=== PATIENT | female | born 1955 | race Caucasian/White ===

== ENCOUNTER 2022-07-18 09:33 | Emergency (ER) | payer MEDICARE, OTHER, SELFPAY ==
[2022-07-18 09:41] VITALS: BP 160/75; PULSE 100; RESP 20; TEMP 36.6; O2SAT 99; BMI 37.2
--- NOTE | 2022-07-18 09:57 | ED_ITS ---
History of Present Illness General Chief Complaint: Epistaxis <PALMER Nieto - Last Filed: 07/18/22 10:38> Stated Complaint: bloody nose <PALMER Nieto - Last Filed: 07/18/22 10:38> Time Seen by Provider: 07/18/22 09:57 <PALMER Nieto - Last Filed: 07/18/22 10:38> History of Present Illness HPI Narrative: Patient complains of nose bleed that started spontaneously as she was driving and was coming out both her nose and her mouth which was very alarming so she drove to the hospital where she was instructed to apply pressure and the nose bleed has stopped She denies any bruising, no bleeding from any other site no injury no dizziness no fainting or feeling faint no rash <PALMER Nieto Last Filed: 07/18/22 10:38> Related Data Home Medications: Previous Rx's Medication Instructions Recorded oxymetazoline 0.05 % nasal spray 3 spray intranasal Q12H PRN 07/18/22 (12 Hour Nasal Relief [place]) Bleeding or congestion 3 days #15 mL <PALMER Nieto - Last Filed: 07/18/22 10:38> Allergies/Adverse Reactions: Allergies Allergy/AdvReac Type Severity Reaction Status Date / Time No Known Allergies Allergy Verified 07/18/22 09:40 <PALMER Nieto - Last Filed: 07/18/22 10:38> [facility] Past Medical History Source: nursing notes reviewed <PALMER Nieto - Last Filed: 07/18/22 10:38> Medical History: Medical History (Updated 07/19/22 @ 00:01 by Jahaira Ayoub) Hypertension <PALMER Nieto - Last Filed: 07/18/22 10:38> Surgical History: Surgical History (Updated 07/18/22 @ 10:07 by Reema Sahu RN) H/O: hysterectomy History of bilateral knee replacement <PALMER Nieto Last Filed: 07/18/22 10:38> Social History Social History: Social History Advance Directives: No <PALMER Nieto Last Filed: 07/18/22 10:38> Physical Exam Vital Signs: Vital Signs: Last Vital Signs Temp 98.1 F 07/18/22 10:08 Pulse 77 07/18/22 10:08 Resp 18 07/18/22 10:08 BP 132/56 L 07/18/22 10:08 Pulse Ox 97 07/18/22 10:08 O2 Del Method 07/18/22 10:08 BMI result Body Mass Index 37.2 <PALMER Nieto - Last Filed: 07/18/22 10:38> Vital Signs: Last Vital Signs Temp 98.1 F 07/18/22 10:08 Pulse 77 07/18/22 10:08 Resp 18 07/18/22 10:08 BP 132/56 L 07/18/22 10:08 Pulse Ox 97 07/18/22 10:08 O2 Del Method 07/18/22 10:08 BMI result Body Mass Index 37.2 <Fabrice Marroquin MD - Last Filed: 07/22/22 11:51> exam done after pt applied pressure for 15 minutes General appearance comfortable no distress no respiratory distress Eyes no pallor The nose is normal, there is no active bleeding now There is some scant clotted blood in the left nostril but no active bleeding, nose is otherwise normal no signs of trauma The pharynx is clear with no evidence of bleeding dripping into the pharynx Neck is supple Chest clear to auscultation no respiratory distress Extremities full range of motion x4 Skin no rash no petechiae no purpura Neuro no focal deficits <PALMER Nieto - Last Filed: 07/18/22 10:38> Course Course Course Narrative: patient arrived at ER with nosebleed that had been going on for 15 or 20 minutes and was advised to apply pressure which did stop the bleeding and by the time I saw the patient there was no nose bleed Afrin was sprayed in both nostrils to hopefully prevent any further bleeding and after observation for 20 minutes with no further bleeding the patient is discharged <PALMER Nieto - Last Filed: 07/18/22 10:38> Medications Administered Discontinued Medications Generic Name Dose Route Start Last Admin Trade Name Freq PRN Reason Stop Dose Admin Oxymetazoline HCl 2 spray 07/18/22 10:18 07/18/22 10:34 Oxymetazoline Hcl 0.05 % Nasal 15 Ml [place] NOSTRIL-B 07/18/22 10:19 2 spray ONCE ONE Administration <PALMER Nieto - Last Filed: 07/18/22 10:38> Medications Administered Discontinued Medications Generic Name Dose Route Start Last Admin Trade Name Domingoq PRN Reason Stop Dose Admin Oxymetazoline HCl 2 spray 07/18/22 10:18 07/18/22 10:34 Oxymetazoline Hcl 0.05 % Nasal 15 Ml [place] NOSTRIL-B 07/18/22 10:19 2 spray ONCE ONE Administration <Fabrice Marroquin MD - Last Filed: 07/22/22 11:51> Medical Decision Making Attestation Attending Attestation: I reviewed [employer]/PA/Resident note, assessment and plan. I agree with the documentation, assessment and plan unless otherwise stated. <Fabrice Marroquin MD - Last Filed: 07/22/22 11:51> Discharge Plan Discharge Clinical Impression: Epistaxis <PALMER Nieto - Last Filed: 07/18/22 10:38> Patient Disposition: Home, Self-Care <PALMER Nieto - Last Filed: 07/18/22 10:38> Additional Instructions: most nose bleeds will stop if you apply pressure for 10 minutes as we showed you afrin spray constricts blood vessels and helps control bleeding return any time for uncontrolled bleeding any worse condition or concerns <PALMER Nieto - Last Filed: 07/18/22 10:38> Prescriptions: New oxymetazoline [12 Hour Nasal Relief [place]] 0.05 % spray,non-aerosol 3 spray intranasal Q12H PRN (Reason: Bleeding or congestion) 3 Days Qty: 15 0RF <PALMER Nieto - Last Filed: 07/18/22 10:38> Interventions: ED Discharge Assessment Last Done: 07/18/22 10:36 <PALMER Nieto - Last Filed: 07/18/22 10:38> Discharge Date/Time: 07/18/22 10:37 <PALMER Nieto - Last Filed: 07/18/22 10:38>
[2022-07-18 10:08] VITALS: BP 132/56; PULSE 77; RESP 18; TEMP 36.7; O2SAT 97
--- NOTE | 2022-07-18 10:10 | PC.NURSE ---
patient a&ox3, vss, pt unknown cause of epistaxis, denies pain/discomfort, no bleeding noted at this time, call vanegas within reach, will continue to monitor
--- OUTSIDE RECORDS SUMMARY | 2022-07-18 10:17 | XMS_ITS | Continuity of Care Document ---
:1955 Author Organization [facility] Address [address] [place] [address]- Care Team Providers Name Role Phone Thanh Ivey Primary Care Physician [id number] Date(s[facility] 12/16/[facility] - 12/23/21 [facility] [address], [place] [address] Attending Physician: Sriram Vanegas DO Referring Physician: Thanh Ivey Allergies, Adverse Reactions, Alerts No Known Allergies Medications albuterol CFC free 90 mcg/inh inhalation aerosol 2 puffs, Inhalation, Every 4 hours, PRN for wheezing, # 9 Gm, 0 Refills, Maintenance, 07/20/14 16:43:35, Aerosol, 2 puffs Inhalation Every 4 hours,PRN:for wheezing Start Date: 07/20/14 Status: OrderedColace sodium 100 mg oral capsule 1 capsule = 100 mg, By Mouth, 2 times a day, PRN for constipation, # 60 capsule, 0 Refills, Maintenance, Capsule Start Date: 01/15/12 Stop Date: 02/14/12 Status: Orderedferrous sulfate 325 mg oral tablet 1 tablet = 325 mg, By Mouth, 2 times a day, # 60 tablet, 0 Refills, Maintenance, Tablet Start Date: 01/15/12 Stop Date: 02/14/12 Status: OrderedFlonase 50 mcg/inh nasal spray 1 sprays, Nares, Both, 2 times a day, # 1 each, 0 Refills, Maintenance, 09/14/15 13:51:31, [place], 1 sprays Nares, Both 2 times a day,x14 days Start Date: 09/14/15 Stop Date: 09/28/15 Status: Orderedibuprofen 600 mg oral tablet 1 tablet = 600 mg, By Mouth, 4 times a day, PRN Pain , Moderate, # 56 tablet, 0 Refills, Maintenance Start Date: 01/15/12 Stop Date: 01/29/12 Status: Orderedoxycodone 5 mg oral tablet 1 tablet = 5 mg, By Mouth, Every 3 hours, PRN for pain, may take 1-2 tablets, # 24 tablet, 0 Refills, Maintenance, Tablet Start Date: 01/15/12 Status: OrderedZithromax Z-Louis 250 mg oral tablet See Instructions, as directed on package labeling, # 6 tablet, 0 Refills, Soft Stop, 07/20/14 16:42:13, Tablet, as directed on package labeling Start Date: 07/20/14 Status: Ordered Results Orders for Microbiology Reports Name Date Urine Culture (URINE CULTURE) 12/16/21 Microbiology Reports TEST:Urine Culture STATUS:Auth (Verified) BODY SITE: SOURCE:URINE COLLECTED DATE/TIME:12/16/21 9:48 AMUrine Culture SPECIMEN DESCRIPTION : URINE SPECIAL REQUESTS : NONE CULTURE : NO GROWTH REPORT STATUS : FINAL 12/17/2021 Vital Signs Most recent to oldest [Reference Range]: 1 Height 160.00 cm (12/16/21 9:28 AM) Oxygen Saturation [94-100 %] 97 % (12/16/21 9:28 AM) Pulse Rate [55-90 bpm] 82 bpm (12/16/21 9:28 AM) Blood Pressure [90-138/55-84 mm Hg] 130/56 mm Hg (12/16/21 9:28 AM) Respiratory Rate [16-30 br/min] 18 br/min (12/16/21 9:28 AM) Temperature [96.8-100.4 DegF] 98.1 DegF (12/16/21 9:28 AM) Mode of Delivery (Oxygen) Room air (12/16/21 9:28 AM) Blood pressure sites Arm, right (12/16/21 9:28 AM) Temperature Route Temporal (12/16/21 9:28 AM) Social History Social History Type Response Smoking Status Light tobacco smoker entered on: 09/14/15 Sex
--- OUTSIDE RECORDS SUMMARY | 2022-07-18 10:17 | XMS_ITS | Continuity of Care Document ---
:1955 Author Organization [facility] Address [address] [place] [address]- Care Team Providers Name Role Phone Zion CABRALES, Houston Gonzalez Primary Care Physician Encounter 05/07/21 - 05/25/21 [facility] [address] [place] [id number] Discharge Disposition: GOALS MET Allergies, Adverse Reactions, Alerts Substance Reaction Severity Status NKA Active Medications albuterol CFC free 90 mcg/inh inhalation [...] 1 each, 0 Refills, Maintenance, 09/14/15 13:51:31, [place], 1 sprays Nares, Both 2 times a [...] package labeling Start Date: 07/20/14 Status: Ordered Social History Social History Type Response Smoking Status Light tobacco smoker entered on: 09/14/15 Sex
--- OUTSIDE RECORDS SUMMARY | 2022-07-18 10:17 | XMS_ITS | Continuity of Care Document ---
:1955 Author Organization [facility] Address [address] [place] [address]- Care Team Providers Name Role Phone Thanh Ivey Primary Care Physician Encounter [facility] [id number] Date(s): 12/16/21 - 01/15/22 [facility] [address], [place] [address] Attending Physician: Jose Francisco Garcia Admitting Physician: AdmtrJose Francisco Referring Physician: AdmtrJose Francisco Allergies, Adverse Reactions, Alerts No Known Allergies [...] 1 each, 0 Refills, Maintenance, 09/14/15 13:51:31, [place], 1 sprays Nares, Both 2 times a [...]
--- OUTSIDE RECORDS SUMMARY | 2022-07-18 10:17 | XMS_ITS | Continuity of Care Document ---
:1955 Author Organization [facility] Address [address] [place] [id number]- Care Team Providers Name Role Phone Zion CABRALES, Houston Gonzalez Primary Care Physician [phone] [place] [facility] [place] Date(s): 05/05/21 - 06/04/[address] [address]- Attending Physician: Not on Staff, Attending MD Admitting Physician: Not on Staff, Admitting MD Referring Physician: Not on Staff, Referring MD Allergies, Adverse Reactions, Alerts Substance Reaction Severity [...] 1 each, 0 Refills, Maintenance, 09/14/15 13:51:31, [place], 1 sprays Nares, Both 2 times a [...]
[2022-07-18] MEDS: Oxymetazoline HCl 0.05 % Nasal 15 ML SPRAY 2 SPRAY NOSTRIL-B (10:34)
--- NOTE | 2022-07-18 10:35 | PC.NURSE ---
nasal spray given by provider
== END 2022-07-18 10:37 | disposition home or self-care (01) ==
PROVIDERS: Emergency Provider Emergency Medicine; PCP Physician Assistant Medical
DX: R04.0 Epistaxis (principal)
CPT/HCPCS: 99283; 99284